=== PATIENT | male | born 1995 | race Caucasian/White ===

== ENCOUNTER 2024-06-05 19:16 | Emergency (ER) | payer SELFPAY ==
[2024-06-05 19:28] VITALS: BMI 47.4
[2024-06-05] MEDS ORDERED: FAMOTIDINE 20 MG/50 ML IVPB 20 MG/50 ML MG IVPB ONE (21:31)
[2024-06-05] MEDS ORDERED: MAG HYDROX/AL HYDROX/SIMETH 30 ML UNIT-DOSE CUP ONE (21:31)
[2024-06-05] MEDS ORDERED: ACETAMINOPHEN INJECTION 100 ML ONE (21:31)
[2024-06-05] MEDS: FAMOTIDINE 20 MG/50 ML IVPB 20 MG/50 ML MG IVPB ONE (21:52)
[2024-06-05] MEDS: MAG HYDROX/AL HYDROX/SIMETH 30 ML UNIT-DOSE CUP PO ONE (21:52)
[2024-06-05] MEDS: ACETAMINOPHEN 1000 MG/100 ML BAG IVPB ONE (21:52)
[2024-06-05 22:07] LABS: BASO % 0.4 % (0-2.0); EOS % 1.2 % (0-4.5); HEMATOCRIT 47.4 % (35.4-49); HEMOGLOBIN 15.6 GM/dL (11.7-16.9); LYMPH % 28.5 % (8-40); MCH 26.3 pg (25.7-33.7); MEAN CELL VOLUME 79.7 fl (80-96); MEAN PLT VOLUME 8.2 fl (7.5-11.1); MONO % 6.6 % (3.8-10.2); NEUT % 63.3 % (42.8-82.8); PLATELET COUNT 319 10^3/uL (134-434); RBC 5.94 M/mm3 (4.00-5.60); RDW 14.5 % (11.9-15.9); WHITE BLOOD COUNT 10.8 K/mm3 (4.0-10.0)
[2024-06-05 22:24] LABS: POTASSIUM 3.8 mmol/L (3.5-5.1)
[2024-06-05 22:26] LABS: CALCIUM 9.7 mg/dL (8.5-10.1)
[2024-06-05 22:27] LABS: ALBUMIN 4.6 g/dl (3.4-5.0); BLOOD UREA NITROGEN 16.4 mg/dL (7-18); MAGNESIUM 2.5 mg/dL (1.8-2.4)
[2024-06-05 22:30] LABS: CREATININE 0.9 mg/dL (0.55-1.3)
[2024-06-05 22:31] LABS: BILIRUBIN,TOTAL 0.6 mg/dL (0.2-1); TOT PROT 8.2 g/dl (6.4-8.2)
[2024-06-05 23:20] LABS: HIV INTERPRETATION NEGATIVE (NEGATIVE)
[2024-06-05 23:39] VITALS: BP 127/85; PULSE 84; RESP 16; TEMP 98.6
== END 2024-06-06 01:07 | disposition home or self-care (01) ==
LOC: JER 19:16
PROC: 3E033GC Introduction of Other Therapeutic Substance into Peripheral Vein, Percutaneous Approach (ICD-10-PCS; principal; 2024-06-05)
PROC: 3E033NZ Introduction of Analgesics, Hypnotics, Sedatives into Peripheral Vein, Percutaneous Approach (ICD-10-PCS; 2024-06-05)
DX: R07.89 Other chest pain (principal); R51.9 Headache, unspecified; M25.562 Pain in left knee; M79.602 Pain in left arm
CPT/HCPCS: 36415; 71046-TC-FY; 80053; 83735; 84484; 85025; 86803; 87389; 93005; 93010; 99285-25; J0131